=== PATIENT | male | born 1965 | race Two or more races ===

== ENCOUNTER 2021-02-23 15:58 | Emergency (ER) | payer SELFPAY ==
[~2021-02-23] VITALS: Ht 149.9 cm; Wt 61.2 kg
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
[2021-02-23] MEDS ORDERED: HYDROCODONE/APAP 5/325MG TABLET ONE (16:28)
[2021-02-23] MEDS ORDERED: HYDROCODONE/APAP 5/325MG TABLET PO ONE (16:30)
--- NOTE | 2021-02-23 16:31 | NUR ---
EQUIPMENT TESTER AT BEDSIDE
--- NOTE | 2021-02-23 17:57 | NUR ---
xray at bedside
[2021-02-23] MEDS ORDERED: ACET-2605 PO (18:19)
[2021-02-23 18:26] VITALS: BP 133/86
--- NOTE | 2021-02-23 18:26 | NUR ---
IV removed. Catheter intact and site benign. Pressure and 4x4 applied to site. No bleeding noted.Patient discharged to home in stable condition. Written and verbal after care instructions given. Patient verbalizes understanding of instruction.
== END 2021-02-23 18:26 | disposition home or self-care (01) ==
LOC: ER 16:01
DX: S43.084A Other dislocation of right shoulder joint, initial encounter (principal); M25.521 Pain in right elbow; M79.652 Pain in left thigh; Z88.6 Allergy status to analgesic agent; V23.4XXA Motorcycle driver injured in collision with car, pick-up truck or van in traffic accident, initial encounter; Y93.55 Activity, bike riding; Y92.89 Other specified places as the place of occurrence of the external cause; Y99.8 Other external cause status
CPT/HCPCS: 73030-TC; 73060-TC; 73080-TC; 73552